=== PATIENT | female | born 1955 | race Caucasian/White ===

== ENCOUNTER → 2020-08-19 | Outpatient (CLI) | payer MEDICARE, BC ==
[~2020-08-19] MED LIST: AMOX875T; BUSP10TA; CIPR500T3; DIAZ2TAB; DIAZ5TAB; ELIQ5TAB; ESCI10TA2; ESCI20TA; EXEM25TA; GABA-1171; LETR2.5T2; LIDOCAINE 1% MDV 20ML VIAL As Ordered ONE; MEGE40TA; NITR100C2; OMEP-221; ONDA-83; PANT40TA29; PROC10TA4; TRAM50TA2; VSL#CAP
[2020-08-19 09:26] LABS: PARTIAL THROMBOPLASTIN TIME 31.6 SECONDS (24.2-38.5); PROTHROMBIN TIME 13.4 SECONDS (12.5-14.3)
[2020-08-19 12:40] VITALS: BP 123/72
--- NOTE | 2020-08-29 15:19 | REP ---
CT-GUIDED LUNG BIOPSY This procedure was performed by SYDNIE Mcconnell, under the direct supervision of Dr. Stack. The risks and benefits of the procedure were explained to the patient and an informed consent was obtained both verbally and written. Directly prior to the start of the procedure, a formal time-out was completed in the procedure room. The right upper lobe pleural mass was localized using CT guidance. The skin was prepped and draped in a sterile fashion. Approximately 8 mL of Lidocaine was used as a local anesthetic. Using CT guidance, a 19-20 gauge coaxial needle biopsy system was inserted and advanced into the nodule. Five core biopsy samples were obtained and sent to the lab for further analysis. Postprocedural imaging showed no pneumothorax. The patient tolerated the procedure well and there were no immediate complications. After the appropriate amount of monitored convalescence, the patient was discharged from the department. ZACHARY
== END ==
LOC: M IRPRO 07:57
PROVIDERS: ATTEND Internal Medicine Pulmonary Disease
DX: C34.91 Malignant neoplasm of unspecified part of right bronchus or lung (principal)